=== PATIENT | female | born 1965 | race Two or more races ===

== ENCOUNTER → 2017-03-04 | Outpatient (CLI) | payer OTHER ==
[~2017-03-04] MED LIST: ASPI1TAB2 PO; CYCL10TA2 PO; IBUP-1027 PO; IOHEXOL 180 MG/ML 10 ML VIAL. ONE; methylPREDNISolone ACETATE 40 MG/ML VIAL. ONE; methylPREDNISolone ACETATE 80 MG/ML VIAL. ONE
--- NOTE | 2017-03-05 01:47 | PAIN ---
DATE OF SERVICE: 03/04/2017 INITIAL CONSULTATION FOR PAIN CLINIC CHIEF COMPLAINT: Low back and right lower extremity pain. HISTORY OF PRESENT ILLNESS: This is a 51-year-old female who presents with history of pain in the low back and right leg for about 1 year or so, gradually increasing, not a result of any specific injury or accident that she is aware of, but has been increasing with walking, standing and change in positions. It has been difficult to work and she is on her feet most of her working day. The patient reports she does have numbness in the right leg as well in the anterior thigh, medial thigh, to the knee, into the medial lower leg and across the low back and mostly on the right side in the posterior gluteus as well. The patient reports it is intermittent in intensity, but always present, sharp and stabbing at times as well. The patient did have an MRI scan of the lumbar spine showing diffuse posterior disk bulge at L4-L5 abutting the descending bilateral L5 nerve roots with effacement of the exiting right L4 nerve root. L5-S1 shows mild diffuse disk bulge as well with shallow left paracentral protrusion with mild abutting the descending left S1 nerve root. The patient has been taking cyclobenzaprine as well as methocarbamol, both of which do decrease the pain, but only to a slight extent. The patient has had physical therapy last March and February and some of the exercises that she was taught at that time has not been reducing the pain significantly. She has been trying to walk daily, but this is becoming more and more difficult because of the pain as well. The patient reports no loss of motor function in the lower extremities, but the right lower extremity does fatigue much more easily than the left with activity. The patient reports the disability rate from 0-10, 10 being the worst, is a 5 with family and home responsibilities, 2 with recreation and sexual behavior, 3 with social activity, self-care and life support activities and 6 with occupation activities. PAST MEDICAL HISTORY: Significant for arthritis and previous childbirth. No previous surgeries. CURRENT MEDICATIONS: Include cyclobenzaprine, methocarbamol on a p.r.n. basis and ibuprofen. ALLERGIES: The patient has no known drug allergies. FAMILY HISTORY: Significant for no major medical problems or conditions. 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 REVIEW OF SYSTEMS: The patient's review of systems is positive for those items mentioned in history of present illness. All systems reviewed and otherwise negative. It is complete, full and well documented on the patient's chart. PHYSICAL EXAMINATION: VITAL SIGNS: Today, the patient's blood pressure is 132/75, pulse 85, respirations 18, temperature 97.9 degrees Fahrenheit, height is 5 feet 2 inches, weight 142 pounds. GENERAL: The patient is awake, alert, oriented, appropriate, very pleasant demeanor. HEENT: Shows normocephalic, atraumatic. Extraocular movements are intact, symmetrical. Oral cavity, mucous membranes are moist and pink. Dentition is intact. NECK: Shows anterior throat supple without palpable lymphadenopathy noted. Swallow reflex is symmetrical. CHEST: Shows normal on inspection. Breath sounds are clear to auscultation bilaterally. HEART: Shows S1 and S2 clear. ABDOMEN: Soft, nontender, nondistended. No palpable organomegaly is noted. No rebound or guarding demonstrated. BACK: Shows spine grossly in the midline. Normal appearing thoracic kyphosis and lumbar lordotic curvature and lumbar paraspinous musculature is symmetrical on inspection with palpation shows mild tenderness in the lower lumbar distribution only, but diffusely without radiation, without trigger points or asymmetry, no tenderness over the spinous processes over the sacrum or sacroiliac regions. Lower extremities showed deep tendon reflexes at 2+ in the patellar tendon and 1+ tendo calcaneus tendons. Motor exam is strong with 5/5 dorsiflexion, extension, quadriceps and hamstring flexion and is symmetrical. The patient peripheral pulses are 1+ posterior tibial and dorsalis pedis pulses. No peripheral edema is noted. No clubbing, no cyanosis. Lower extremities are warm and dry to touch, equal in color and appearance. Straight leg raise noted to be negative on the left, but positive on the right at about 45 degrees, which decreased with knee flexion. Gaenslen's and Brian's maneuvers are negative bilaterally as well. The patient is able to stand, is able to stand on her toes without difficulty or loss of balance, is walking with a normal appearing gait for short distance in the office today, does not appear to favoring the right or left lower extremity, does not have any assistive devices to ambulate as well. IMPRESSION: 1. This is a 51-year-old female with about 1 year history of increasing pain in low back, right lower extremity in a radicular fashion as noted. 2. MRI scan as noted. 3. History of arthritis. PLAN: Options were discussed with the patient including conservative medical management, physical therapy, interventional techniques. She would like to pursue interventional techniques. We discussed a lumbar epidural steroid injection using description as well as anatomical models to describe the procedure. Risks were then discussed including, but not limited to bleeding, infection, possibility of epidural hematoma and subsequent neurologic compromise, dural puncture, headaches, spinal cord and/or nerve damage, side effects of steroid medication and poor results regarding pain control. The patient understands and wishes to proceed. The patient will return to clinic in approximately 2 weeks for followup, was counseled on return appointment, activity level and side effects to be aware of. DIAGNOSES: Lumbar radiculopathy with lumbar degenerative disk disease. PROCEDURES: Lumbar epidural steroid injection, translaminar approach at the L4-L5 level using C-arm fluoroscopic guidance under sterile prep and drape using local anesthetic. MEDICATIONS INJECTED: A 120 mg Depo-Medrol plus 10 mL of preservative-free normal saline and 2 mL Isovue contrast. CONDITION AT DISCHARGE: Stable. The patient tolerated procedure well, had no complications. JARAD CASTREJON MD DR: PORFIRIO/brenda JOB#: [id number] / [id number]
== END | disposition home or self-care (01) ==
LOC: PNCL 08:16
PROVIDERS: ATTEND Anesthesiology
DX: M51.16 Intervertebral disc disorders with radiculopathy, lumbar region (principal); M19.90 Unspecified osteoarthritis, unspecified site
CPT/HCPCS: 62323; J1030; J1040

== ENCOUNTER → 2017-03-26 | Outpatient (CLI) | payer BC, OTHER | END | disposition home or self-care (01) | LOC: PNCL 10:19 | PROVIDERS: ATTEND Anesthesiology | DX: M51.16 Intervertebral disc disorders with radiculopathy, lumbar region (principal); Z72.89 Other problems related to lifestyle | CPT/HCPCS: 62323; J1030; J1040 ==

== ENCOUNTER → 2017-06-04 | Outpatient (CLI) | payer BC, OTHER ==
[~2017-06-04] MED LIST changes: +ASPI-621 PO; -ASPI1TAB2 PO; +[UNRECOGNIZED DRUG - REMARK]
--- NOTE | 2017-06-04 09:58 | PAIN ---
DATE OF SERVICE: 06/04/2017 DATE OF SERVICE: 06/04/2017 DIAGNOSES: Lumbar radiculopathy with lumbar degenerative disk disease. HISTORY OF PRESENT ILLNESS: The patient is a 51-year-old white female who returns for followup status post lumbar epidural steroid injections x 2. The patient reports approximately 80% improvement after the last injection, beginning to come back now over the last week or so in the low back and in the right hip and leg. The patient reports it is a 4 on a scale of 10 at its worst, 3 on average, and a 3 at least. The patient reports it is a stabbing pain as dull, radiating to the right leg, but without significant limitation or weakness. The patient reports no new motor or sensory deficits, no new bowel or bladder incontinence or other complaints. The patient reports that it wakes her from sleep occasionally. She could reposition or get out of bed, change positions, get back to sleep, sleeps about 6 hours at a time. PHYSICAL EXAMINATION: VITAL SIGNS: The patient's blood pressure is 122/77, pulse 85, respirations 20, temperature 98.5 degrees Fahrenheit, height is 5 feet 2 inches, weight 142 pounds. GENERAL: The patient is awake, alert, oriented, appropriate, very pleasant demeanor. HEENT: Head shows normocephalic, atraumatic. Extraocular movements are intact, symmetrical. Oral cavity, mucous membranes are moist and pink. Dentition is intact. NECK: Shows anterior throat supple without palpable lymphadenopathy noted. Swallow reflex is symmetrical. CHEST: Shows normal on inspection. Breath sounds clear to auscultation bilaterally. HEART: Shows S1 and S2 clear. ABDOMEN: Obese, soft, nontender, nondistended. No palpable organomegaly is noted. BACK: Shows spine grossly midline. Normal appearing lumbar lordotic curvature. Lumbar paraspinous muscle shows symmetrical on inspection with palpation shows some mild tenderness only diffusely in the lower lumbar distribution bilaterally without radiation. The patient has good rotational motion both laterally as well as extension and flexion without difficulty. No tenderness over the sacrum or sacroiliac regions. EXTREMITIES: Lower extremities show deep tendon reflexes at 2+ in the patellar, 1+ talocalcaneal tendons. Motor exam is strong with 5/5 dorsiflexion, extension, quadriceps and hamstring flexion equal bilaterally. Options were discussed with the patient and the patient's old chart was reviewed as her current medication regimen updated. Current review of systems updated today as well. We will proceed with a third in a series of lumbar epidural steroid injection with fluoroscopic guidance. Risks were again discussed including, but not limited to bleeding, infection, possibility of epidural hematoma, subsequent neurologic compromise, dural puncture, headaches, spinal cord and/or nerve damage, side effects of steroid medication and poor results regarding pain control. The patient understands and wishes to proceed. The patient will return to clinic in approximately 2 weeks for followup. She was counseled to return appointment, activity level and side effects to be aware of. DIAGNOSIS: Lumbar radiculopathy with lumbar degenerative disk disease. PROCEDURE: Lumbar epidural steroid injection in translaminar approach at the L4-L5 level using C-arm fluoroscopic guidance using a sterile prep and drape with local anesthetic. MEDICATIONS INJECTED: 120 mg Depo-Medrol plus 10 mL of preservative-free normal saline and 2 mL Isovue contrast. CONDITION AT DISCHARGE: Stable. The patient tolerated procedure well, had no complications. JARAD CASTREJON MD DR: PORFIRIO/brenda JOB#: [id number] / [id number]
== END | disposition home or self-care (01) ==
LOC: PNCL 08:10
PROVIDERS: ATTEND Anesthesiology
DX: M51.16 Intervertebral disc disorders with radiculopathy, lumbar region (principal)
CPT/HCPCS: 62323; J1030; J1040